=== PATIENT | male | born 1980 | race Caucasian/White ===

== ENCOUNTER 2019-02-23 13:31 | Inpatient (IN) | payer OTHER ==
[~2019-02-23] VITALS: Ht 185.4 cm; Wt 75.4 kg
--- NOTE | ~2019-02-23 | EKG ---
[place], [place] ELECTROCARDIOGRAM REPORT NAME: SHELLIE WHATLEY UNIT #: [id number] ROOM: 401 DOCTOR: INES DRAFT REPORT BIRTHDATE: [birth year] [facility] Test Date: 2019-02-23 Test Time: 16:01:59 Pat Name: SHELLIE WHATLEY Department: Room: 401 1 Gender: M Supervisor Gear Repair: SS RESP : 1980 Requested By: MARIE HORNER Order Number: [id number] Reading MD: Pavel Collazo MD Measurements Intervals [place] Rate: 74 P: 70 [place]: 91 QRS: 75 QRSD: 85 T: 30 QT: 378 QTc: 420 Interpretive Statements Sinus rhythm Short [place] interval Electronically Signed On 02-24-2019 4:54:12 PDT by Pavel Collazo MD CM:[email or web address]:ELECTROCARDIOGRAM REPORT [id number] MARIE HORNER EPIPHANY DRAFT REPORT MARIE HORNER
[2019-02-23 14:50] VITALS: BP 157/97
--- NOTE | 2019-02-23 14:50 | NUR ---
38 year old MALE admitted to room # 401 for stabilization. Reports an addiction to ALCOHOL last used 4 hours prior to admission. Compliant with admission procedure. Patient denies any anxiety, but is unable to sit still, taps toes to floor continuously, looks about room, unable to focus eyes on nurse during interview. See assessment forms for additional information about patient status.
[2019-02-23] MEDS ORDERED: OMEPRAZOLE40 MG PO (14:51)
[2019-02-23] MEDS ORDERED: LISINOPRIL10 M1 PO (14:52)
--- NOTE | 2019-02-23 15:08 | NUR ---
PATIENT MEETS [facility]. CIWA=18. PATIENT WANTS RESIDENTIAL TREATMENT AT [facility]. IN STAFF WILL FOLLOW UP WITH PATIENT. CORDELIA LORENZO B.A. RELIEF CHARGE NURSE
[2019-02-23] MEDS ORDERED: PROZAC20 MG PO (15:09)
--- NOTE | 2019-02-23 15:15 | NUR ---
HOME MEDS RECONCILED WITH PT AT BEDSIDE.
[2019-02-23 15:59] LABS: BILIRUBIN NEGATIVE (NEGATIVE); BLOOD NEGATIVE (NEGATIVE); CLARITY CLEAR (CLEAR); COLOR YELLOW (YELLOW); GLUCOSE NEGATIVE (NEGATIVE); KETONE NEGATIVE (NEGATIVE); LEUKO ESTERASE NEGATIVE (NEGATIVE); NITRITE NEGATIVE (NEGATIVE); PH 6.5 (5.0-9.0); SPECIFIC GRAVITY <= 1.005 (1.005-1.030); UROBILINOGEN 0.2 E.U./dl (0.2-1.0)
[2019-02-23 16:00] VITALS: BP 157/97
[2019-02-23 16:00] LABS: BASO # 0.1 10*3/uL (0.0-0.1); EOS # 0.2 10*3/uL (0.0-0.4); HEMATOCRIT 51.7 % (42.0-52.0); HEMOGLOBIN 18.1 g/dl (14.0-18.0); LYMPH # 2.3 10*3/uL (1.3-4.4); LYMPH % 28.7 % (27.0-41.0); MEAN CELL VOLUME 91.2 fl (80.0-94.0); MEAN CORPUSCULAR HGB 31.9 pg (27.0-31.0); MEAN PLATELET VOLUME 8.7 fl (9.6-12.3); MONO # 0.4 10*3/uL (0.1-1.0); MONO % 5.2 % (3.0-9.0); NEUT # 4.9 10*3/uL (2.3-7.9); PLATELET COUNT AUTOMATED 260 10*3/uL (130-400); RED BLOOD COUNT 5.67 10*6/uL (4.50-5.90); RED CELL DISTRI WIDTH 12.9 % (0-14.5); WHITE BLOOD COUNT 7.9 10*3/uL (4.8-10.8)
[2019-02-23 16:07] LABS: URINE AMPHETAMINES < 1000 (1000ng/ml); URINE BARBITURATES > 200 (200ng/ml); URINE BENZODIAZEPINES < 200 (200ng/ml); URINE CANNABINOIDS (THC) < 50 (50ng/ml); URINE COCAINE < 300 (300ng/ml); URINE METHADONE < 300 (300ng/ml); URINE OPIATES < 300 (300ng/ml)
[2019-02-23 16:11] LABS: URINE PHENCYCLIDINE < 25 (25ng/ml)
[2019-02-23 16:22] LABS: EPITHELIAL CELLS 0-2
[2019-02-23 16:35] LABS: ALBUMIN 4.1 gm/dl (3.1-4.5); ALKALINE PHOSPHATASE 80 U/L (45-117); BUN 5 mg/dl (7-24); CHLORIDE 101 mmol/L (98-107); CREATININE 0.86 mg/dL (0.70-1.30); POTASSIUM 3.7 mmol/L (3.5-5.1); SGOT/AST 29 IU/L (3-35); SGPT/ALT 87 U/L (12-78); SODIUM 136 mmol/L (136-145); TOTAL PROTEIN 7.7 gm/dL (6.4-8.2)
--- NOTE | 2019-02-23 19:30 | NUR ---
24 HOUR CHART CHECK COMPLETED
[2019-02-23 20:00] VITALS: BP 147/83
--- NOTE | 2019-02-23 20:00 | NUR ---
PATIENT ASSESSMENT COMPLETED AT THIS TIME WITHOUT INCIDENT, PATIENT DENIES ANY CHEST PAIN, SHORTNESS OF BREATH, TREMORS, OR ADVERSE THOUGHTS OR FEELINGS AT THIS TIME. IV INFUSING WELL AT THIS TIME. CALL LIGHT WITHIN REACH, WILL CONTINUE TO MONITOR.
--- NOTE | 2019-02-23 23:20 | NUR ---
PATIENT REQUESTED MOTRIN AT THIS TIME FOR COMPLAINTS OF A HEADACHE. PATIENT MEDICATED PER REQUEST. WILL CONTINUE TO MONITOR AND REASSESS PAIN.
--- NOTE | 2019-02-23 23:55 | NUR ---
PATIENT STATED THAT HEADACHE IS MUCH BETTER WAS A 6 AND NOW IS A 2. PATIENT DENIED NEED FOR SLEEPING MEDICATION AT THIS TIME THAT HE HAD REQUESTED EARLIER.
[2019-02-24] VITALS: BP 136/86
--- NOTE | 2019-02-24 04:05 | NUR ---
PATIENT RESTING IN BED IN A POSITION OF COMFORT, RESPIRATIONS EASY AND NON-LABORED. CALL LIGHT WITHIN REACH.; WILL CONTINUE TO MONITOR.
--- NOTE | 2019-02-24 07:42 | NUR ---
ATIVAN GIVEN FOR C/O ANXIETY/AGITATION, ZOFRAN GVIEN FOR C/O NUASEA. WILL MONITOR.
[2019-02-24 08:00] VITALS: BP 148/90
--- NOTE | 2019-02-24 08:45 | NUR ---
ATIVAN AND ZOFRAN EFFECTIVE PER PT.
--- NOTE | 2019-02-24 11:21 | NUR ---
PT CONTINUES TO DENY HOME NEEDS. CAN BE DISCHARGED TO HOME WHEN MEDICALLY STABLE. WILL CONTINUE TO FOLLOW.
--- NOTE | 2019-02-24 15:07 | NUR ---
IMODIUM GIVEN FOR C/O DIARRHEA. WILL MONITOR.
--- NOTE | 2019-02-24 15:48 | NUR ---
[place] STAFF IN TO SEE PATIENT. PATIENT WANTED TO FOLLOW UP WITH [facility] IN [place] FOR RESIDENTIAL TREATMENT. [facility] CURRENTLY HAS A WAITING LIST. PATIENT WANTS [place] [facility]FF TO MAKE REFERRAL TO [facility] [place]. [place] STAFF LEFT MESSAGE WITH FACILITY. [place] STAFF WILL FOLLOW BACK UP WITH PATIENT. CORDELIA LORENZO B.A. RN DOCUMENTATION
[2019-02-24 16:00] VITALS: BP 133/87
[2019-02-25] VITALS: BP 134/81
[2019-02-25 08:00] VITALS: BP 130/86
--- NOTE | 2019-02-25 08:37 | NUR ---
[place] STAFF SPOKE WITH PATIENT. PATIENT WILL GO TO [facility] FOR AN ASSESSMENT ONCE DISCHARGED SO THAT HE CAN ENTERED THEIR RESIDENTIAL PROGRAM. PATIENT AGREES AND UNDERSTANDS HIS AFTERCARE PLAN. CORDELIA LORENZO B.A. WARP DYEING TENDER
[2019-02-25 16:00] VITALS: BP 116/78
--- NOTE | 2019-02-25 19:00 | NUR ---
PT IS AWAKE AND WALKING AROUND HIS ROOM AT THIS TIME. HE STATES THAT HE IS FEELING WELL WITH NO C/O WITHDRAWAL AT THIS TIME. WILL CONTINUE TO MONITOR.
--- NOTE | 2019-02-25 19:14 | NUR ---
24 HR CHART CHECK COMPLETE.
[2019-02-25 20:00] VITALS: BP 134/75
[2019-02-26] VITALS: BP 122/83
[2019-02-26 08:00] VITALS: BP 117/75
--- NOTE | 2019-02-26 09:00 | NUR ---
IN TO ROOM. PATIENT AWAKE, ALERT AND ORIENTED. NO STATED COMPLAINTS. DENIES PAIN. BED IN LOWEST LOCKED POSITION AND CALL LIGHT WITHIN REACH. WILL CONTINUE TO MONITOR.
--- NOTE | 2019-02-26 12:34 | NUR ---
Discharge instructions reviewed with patient/family. Patient receptive and verbalizes understanding. Follow-up care arranged. Written instructions given to patient/family. KEMAR GRISSOM
== END 2019-02-26 12:34 | disposition home or self-care (01) | DRG 773 ==
LOC: 4E 13:31
PROVIDERS: Registered Nurse; ADMIT Family Medicine
DX: F10.10 Alcohol abuse, uncomplicated (principal); B19.20 Unspecified viral hepatitis C without hepatic coma; F11.90 Opioid use, unspecified, uncomplicated; F14.90 Cocaine use, unspecified, uncomplicated; F41.1 Generalized anxiety disorder; Z86.14 Personal history of Methicillin resistant Staphylococcus aureus infection; Z82.49 Family history of ischemic heart disease and other diseases of the circulatory system; Z83.3 Family history of diabetes mellitus; Z88.2 Allergy status to sulfonamides; Z88.8 Allergy status to other drugs, medicaments and biological substances; Z79.899 Other long term (current) drug therapy